=== PATIENT | female | born 1985 | race Caucasian/White ===

== ENCOUNTER 2017-07-12 07:31 | Emergency (ER) | payer SELFPAY ==
[2017-07-12 07:41] VITALS: BP 134/91
--- NOTE | 2017-07-12 08:26 | RAD ---
INDICATION: Right foot injury. TECHNIQUE: 3 views of the right foot were obtained. FINDINGS: There is soft tissue swelling present over the dorsal aspect of the foot. The bones are in normal alignment. No fracture is seen. Joint spaces appear maintained. IMPRESSION: SOFT TISSUE SWELLING, NO FRACTURE IS SEEN. IF THE PATIENT'S SYMPTOMS PERSIST RECOMMEND FOLLOW-UP IMAGING.
--- NOTE | 2017-07-12 11:22 | UC ---
Mara Dumas Gabriel, scribed for Beny Duarte MD on 07/12/17 at 0759 . Lower Extremity/Ankle HPI - HPI Summary HPI Summary: This patient is a 31 year old F presenting to [facility] s/p dropping a bin filled with wire on her foot at work this morning. The patient rates the pain 2/10 in severity. Pt is able to ambulate without a significant limp. - History of Current Complaint Chief Complaint: UCLowerExtremity Stated Complaint: FOOT INJURY Hx Obtained From: Patient Hx Last Menstrual Period: 06/28/17 Onset/Duration: Lasting Minutes, Still Present Severity Initially: Mild Severity Currently: Mild Pain Intensity: 3 Pain Scale Used: 0-10 Numeric Able to Bear Weight: Yes Related History: Occupational Injury - Allergies/Home Medications Allergies/Adverse Reactions: Allergies Allergy/AdvReac Type Severity Reaction Status Date / Time No Known Allergies Allergy Verified 07/12/17 07:41 Home Medications: Home Medications Etonogestrel [Nexplanon] 68 mg IMPLANT SEE INSTRUCTIONS 07/12/17 [History Confirmed 07/12/17] RiFAXimin* [Xifaxan*] 550 mg PO TID 07/12/17 [History Confirmed 07/12/17] PMH/Surg Hx/FS Hx/Imm Hx Other History Of: Negative For: Hepatitis B, Hepatitis C, Anticoagulant Therapy - Surgical History Surgical History: Yes Surgery Procedure, Year, and Place: , lap, t&a - Family History Known Family History: Negative: Respiratory Disease, Seizure Disorder - Social History Occupation: Employed Full-time Lives: With Family Alcohol Use: None Substance Use Type: None Smoking Status (MU): Never Smoked Tobacco Review of Systems Constitutional: Negative - fever Musculoskeletal: Other: - right foot pain All Other Systems Reviewed And Are Negative: Yes Physical Exam - Summary Physical Exam Summary: VITAL SIGNS: Reviewed. GENERAL: Patient is a well-developed and nourished male who is lying comfortable in the stretcher. Patient is not in any acute respiratory distress. HEAD AND FACE: Normocephalic EYES: PERRLA, EOMI x 2. EARS: Hearing grossly intact. MOUTH: Oropharynx within normal limits. NECK: Supple, trachea is midline, no adenopathy, no JVD, no carotid bruit. CHEST: Symmetric, no tenderness at palpation LUNGS: Clear to auscultation bilaterally. No wheezing or crackles. CVS: Regular rate and rhythm, S1 and S2 present, no murmurs or gallops appreciated. ABDOMEN: Soft, non-tender. Bowel sounds are normal. No abdominal abnormal pulsations. EXTREMITIES: Full ROM in all major joints, no edema, no cyanosis or clubbing. NEURO: Alert and oriented x 3. No acute neurological deficits. Speech is normal and follows commands. SKIN: Dry and warm, ecchymosis on the dorsal aspect of the right foot Triage Information Reviewed: Yes Vital Signs: Initial Vital Signs Temp 97.8 F 07/12/17 07:38 Pulse 93 07/12/17 07:38 Resp 18 07/12/17 07:38 BP 134/91 07/12/17 07:38 Pulse Ox 99 07/12/17 07:38 Vital Signs Reviewed: Yes Diagnostics - Radiology foot xray Radiology Interpretation Completed By: Radiologist - SOFT TISSUE SWELLING, NO FRACTURE IS SEEN. IF THE PATIENT'S SYMPTOMS PERSIST RECOMMEND FOLLOW-UP IMAGING. Dr. Duarte has reviewed this report. Lower Extremity Course/Dx - Course Course Of Treatment: Xray was negative for fracture. I discussed all the findings and test results with the patient. Patient was instructed to return to the urgent care or go to ER immediately if any of the symptoms return or worsens. Plan of care was discussed with the patient, and patient understands and agrees. All questions were answered to patient satisfaction. There were no further complaints or concerns. . The patient was found to have increased BP in UC. The patient will follow up with PCP for better control of BP. - Differential Dx/Diagnosis Provider Diagnoses: Foot contusion. Elevated blood pressure without a previous diagnoses of hypertension Discharge - Sign-Out/Discharge Documenting (check all that apply): Discharge/Admit/Transfer - Discharge Plan Condition: Stable Disposition: HOME Patient Education Materials: Contusion in Adults (ED) Referrals: [facility] REFERRAL [Outside] No Primary Care Phys,NOPCP [Primary Care Provider] - - Billing Disposition and Condition Condition: STABLE Disposition: HOME The documentation as recorded by the Mara pemberton Gabriel accurately reflects the service I personally performed and the decisions made by , Beny Duarte MD.
== END 2017-07-12 08:47 | disposition home or self-care (01) ==
LOC: UCEAST 07:31
DX: S90.31XA Contusion of right foot, initial encounter (principal); W20.8XXA Other cause of strike by thrown, projected or falling object, initial encounter; Y93.9 Activity, unspecified; Y92.89 Other specified places as the place of occurrence of the external cause; Y99.0 Civilian activity done for income or pay; R03.0 Elevated blood-pressure reading, without diagnosis of hypertension
CPT/HCPCS: 99202; G0463

== ENCOUNTER 2018-03-05 09:35 | Emergency (ER) | payer BC ==
[2018-03-05 12:17] VITALS: BP 124/78
[2018-03-05] MEDS ORDERED: Ibuprofen ADULT LIQ* 600 MG/30 ML UDC PO ONE (12:34)
--- NOTE | 2018-03-05 12:34 | UC ---
UC General HPI - HPI Summary HPI Summary: tripped and fell on her table injuring L ribs on . rolled over in bed 2 days ago and felt a pop and more pain in L ribs. + cough, worse at night. no sob or bloody sputum. denies any abdominal pain. - History of Current Complaint Chief Complaint: UCGeneralIllness Stated Complaint: LT SIDE RIB PAIN Time Seen by Provider: 03/05/18 12:11 Hx Obtained From: Patient Hx Last Menstrual Period: 02/28/18 Pain Intensity: 6 Aggravating: movement Associated Signs & Symptoms: Negative: Fever, Hematemesis, Hemoptysis, SOB, Wheezing - Allergy/Home Medications Allergies/Adverse Reactions: Allergies Allergy/AdvReac Type Severity Reaction Status Date / Time No Known Allergies Allergy Verified 03/05/18 12:07 PMH/Surg Hx/FS Hx/Imm Hx Previously Healthy: Yes Other History Of: Negative For: Hepatitis B, Hepatitis C, Anticoagulant Therapy - Surgical History Surgical History: Yes Surgery Procedure, Year, and Place: , lap, t&a - Family History Known Family History: Negative: Respiratory Disease, Seizure Disorder - Social History Alcohol Use: None Substance Use Type: None Smoking Status (MU): Never Smoked Tobacco Review of Systems All Other Systems Reviewed And Are Negative: Yes Constitutional: Positive: Negative Skin: Positive: Negative Eyes: Positive: Negative ENT: Positive: Negative Cardiovascular: Positive: Negative Gastrointestinal: Positive: Negative Genitourinary: Positive: Negative Motor: Positive: Negative Neurovascular: Positive: Negative Musculoskeletal: Positive: Negative Neurological: Positive: Negative Psychological: Positive: Negative Physical Exam Triage Information Reviewed: Yes Appearance: Well-Appearing Vital Signs: Initial Vital Signs Temp 98.1 F 03/05/18 12:09 Pulse 70 03/05/18 12:09 Resp 16 03/05/18 12:09 BP 124/78 03/05/18 12:09 Pulse Ox 100 03/05/18 12:09 Vital Signs Reviewed: Yes Eyes: Positive: Conjunctiva Clear ENT: Positive: Normal ENT inspection Neck: Positive: Supple, Nontender, No Lymphadenopathy Respiratory: Positive: Other: - purple bruising L lateral inferior rib area with tenderness. no subQ emphysema. no instability. Cardiovascular: Positive: RRR, No Murmur Abdomen Description: Positive: Nontender, No Organomegaly, Soft. Negative: CVA Tenderness (R), CVA Tenderness (L), Distended, Guarding Bowel Sounds: Positive: Present Musculoskeletal: Positive: ROM Intact Neurological: Positive: Alert Psychological: Positive: Age Appropriate Behavior Skin Exam: Normal Diagnostics - Radiology No standard instances Radiology Interpretation Completed By: Radiologist - CXR/RIBS=No radiographically apparent displaced rib fracture or pneumothorax. Course/Dx - Differential Dx - Multi-Symptom Differential Diagnoses: Other - RIB FX, PULMONARY CONTUSION, PTX - Diagnoses Provider Diagnosis: Chest wall contusion Discharge - Sign-Out/Discharge Documenting (check all that apply): Patient Departure All imaging exams completed and their final reports reviewed: Yes - Discharge Plan Condition: Stable Disposition: HOME Prescriptions: Naproxen [Naprosyn 500 mg tab] 500 mg PO BID 5 Days #10 tablet Patient Education Materials: Rib Contusion (ED) Referrals: HARVEY Nova [Medical Doctor] - If Needed Additional Instructions: STOP THE ASPIRIN - Billing Disposition and Condition Condition: STABLE Disposition: Home
== END 2018-03-05 13:23 | disposition home or self-care (01) ==
LOC: UCCORT 09:35
DX: S20.219A Contusion of unspecified front wall of thorax, initial encounter (principal); W01.190A Fall on same level from slipping, tripping and stumbling with subsequent striking against furniture, initial encounter; Y93.9 Activity, unspecified; Y92.9 Unspecified place or not applicable
CPT/HCPCS: 99212; A9270-GY; G0463

== ENCOUNTER 2018-05-17 15:18 | Emergency (ER) | payer BC ==
[2018-05-17 15:48] VITALS: BP 123/85
[2018-05-17] MEDS ORDERED: Ibuprofen TAB* 600 MG PO ONE (15:56)
--- NOTE | 2018-05-17 15:58 | UC ---
Hand/Wrist HPI - HPI Summary HPI Summary: Right hand injury this morning when pt dropped a cinder block on it. - History Of Current Complaint Stated Complaint: RT HAND INJURY Time Seen by Provider: 05/17/18 15:45 Hx Obtained From: Patient Hx Last Menstrual Period: 05/01/18 ?: No Onset/Duration: Sudden Onset, Lasting Hours Severity Initially: Moderate Severity Currently: Moderate Pain Intensity: 4 Character Of Pain: Dull, Aching Aggravating Factor(s): Movement Alleviating Factor(s): Nothing Associated Signs And Symptoms: Positive: Swelling, Bruising, Weakness - Allergies/Home Medications Allergies/Adverse Reactions: Allergies Allergy/AdvReac Type Severity Reaction Status Date / Time No Known Allergies Allergy Verified 05/17/18 15:49 Home Medications: Home Medications NK [No Home Medications Reported] 05/17/18 [History Confirmed 05/17/18] PMH/Surg Hx/FS Hx/Imm Hx Previously Healthy: Yes Other History Of: Negative For: Hepatitis B, Hepatitis C, Anticoagulant Therapy - Surgical History Surgical History: Yes Surgery Procedure, Year, and Place: , exploratory lap, t&a. kidney stone removed - Family History Known Family History: Positive: Diabetes Negative: Respiratory Disease, Seizure Disorder - Social History Alcohol Use: None Substance Use Type: None Smoking Status (MU): Never Smoked Tobacco Review of Systems All Other Systems Reviewed And Are Negative: Yes Constitutional: Positive: Negative Skin: Positive: Bruising Eyes: Positive: Negative ENT: Positive: Negative Respiratory: Positive: Negative Cardiovascular: Positive: Negative Gastrointestinal: Positive: Negative Genitourinary: Positive: Negative Motor: Positive: Negative Neurovascular: Positive: Negative Musculoskeletal: Positive: Arthralgia, Decreased ROM, Edema, Myalgia Neurological: Positive: Negative Psychological: Positive: Negative Is Patient Immunocompromised?: No Physical Exam Triage Information Reviewed: Yes Appearance: Well-Appearing, Well-Nourished, Pain Distress Vital Signs: Initial Vital Signs Temp 97.8 F 05/17/18 15:44 Pulse 84 05/17/18 15:44 Resp 17 05/17/18 15:44 BP 123/85 05/17/18 15:44 Pulse Ox 100 05/17/18 15:44 Vital Signs Reviewed: Yes Eye Exam: Normal ENT Exam: Normal Dental Exam: Normal Neck exam: Normal Respiratory Exam: Normal Respiratory: Positive: Chest non-tender, Lungs clear, Normal breath sounds Cardiovascular Exam: Normal Cardiovascular: Positive: RRR, No Murmur, Pulses Normal Abdominal Exam: Normal Bowel Sounds: Positive: Present Musculoskeletal: Positive: Strength Limited @ - due to pain, ROM Limited @ - due to swelling of the fingers, wrist unaffected, Edema @ - in metatarsal region and fingers Neurological Exam: Normal Psychological Exam: Normal Skin: Positive: Other - bruising of the 2dn and third finger Hand/Wrist Course/Dx - Course Course Of Treatment: hx obtained, exam performed ,meds reviewed, xray obtained and is negative, ibuprofen given. splint applied for work - Differential Dx/Diagnosis Differential Diagnosis/HQI/PQRI: Contusion, Dislocation, Fracture Provider Diagnosis: Contusion of hand, right Discharge - Sign-Out/Discharge Documenting (check all that apply): Patient Departure All imaging exams completed and their final reports reviewed: Yes - Discharge Plan Condition: Stable Disposition: HOME Patient Education Materials: Contusion in Adults (ED) Referrals: Mariela Paige [Primary Care Provider] - Additional Instructions: 1. use the splint as needed. 2. Ice today then warm water soaks for the next few days. work through ther Range of motion to help with removing the swelling - Billing Disposition and Condition Condition: STABLE Disposition: Home
== END 2018-05-17 16:29 | disposition home or self-care (01) ==
LOC: UCCORT 15:18
DX: S60.221A Contusion of right hand, initial encounter (principal); W20.8XXA Other cause of strike by thrown, projected or falling object, initial encounter; Y92.9 Unspecified place or not applicable
CPT/HCPCS: 99213; A9270-GY; G0463

== ENCOUNTER 2019-04-23 13:31 | Emergency (ER) | payer BC, OTHER ==
--- OUTSIDE RECORDS SUMMARY | 2019-04-23 13:38 | XMS REPORT | Continuity of Care Document ---
:1985 External Reference #:[id number] Author Name NICK Colindres Address [address] [place] [address] Care Team Providers Name Role Phone Elyse Zamora M.D. 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 Onset: 02/12/2019 Headache Elyse Zamora M.D. Onset: 02/13/2019 Irritable bowel syndrome with diarrhea Elyse Zamora M.D. Onset: 02/13/2019 Social History Type Date Description Comments Sex Unknown Tobacco Use Start: Unknown Nonsmoker Smoking Status Reviewed: 03/12/19 Nonsmoker ETOH Use Denies alcohol use Tobacco Use Start: Unknown Patient has never smoked Allergies, Adverse Reactions, Alerts Description No Known Drug Allergies Medications Active Medications SIG Qnty Indications Ordering Provider Date Miralax 17 grams every 24units Jeanne 04/03/2019 3350NF Packet day with large NICK Hand glass water Desloratadine take 1 tablet 30tabs H69.93 Gonzalez Stone, 03/12/2019 5mg Tablets by mouth every M.D. day for 2 weeks Viibryd 1 tab by mouth 30tabs F33.9 Elyse Zamora, 02/13/2019 10mg Tablets every day M.D. History Medications Hyoscyamine Sulfate place 1 tablet 100tabs K58.0 Elyse Zamora, 02/13/2019 - under tongue as M.D. 04/03/2019 0.125mg Tablets needed up to 4 Dispers times per day Viibryd Continue 1 tablet 30tabs F33.9 Gonzalez Stone, 12/31/2018 - 20mg Tablets daily M.D. 02/13/2019 Xanax Take 1 - 2 60tabs F33.9 Elyse Zamora, 12/31/2018 - 0.25mg Tablets tablets at M.D. 03/12/2019 bedtime Immunizations CPT Code Status Date Vaccine Lot # [id number] Given 02/13/2019 Influenza Vac, Quadrivalent, Slit Virus, Im [id number] Vital Signs Date Vital Result Comment 04/03/2019 3:08pm BP Systolic 118 mmHg BP Diastolic 68 mmHg Heart Rate 72 /min Body Temperature 97.7 F Respiratory Rate 16 /min Weight 157.00 lb 03/12/2019 3:02pm BP Systolic 100 mmHg BP Diastolic 60 mmHg Heart Rate 68 /min Body Temperature 98.9 F Respiratory Rate 16 /min Height 60 inches 5'0" Weight 159.00 lb BMI (Body Mass Index) 31.0 kg/m2 Results Test Acquired Date Facility Test Result H/L Range Note Ua - Micro ([facility]) 02/13/2019 [facility] medicine Appearance clear (607)- - Color yellow Glucose, Urine (Fma/CMC/CTX) neg Bilirubin neg Ketones neg SP Grav 1.020 Blood neg PH 7.5 Protein neg Urobil 1.0 Nitrite neg Leukocytes (Fma/CMC/Centrex) trace Hyaline - /Lpf Granular - /Lpf WBC (Fma,Centrex) 3-6 RBC 1-3 Mucus (Fma/CBC/Centrex) - /Lpf Epith mod /Lpf Bacteria 1+ /Hpf Amorphous (Fma/CMC/Centrex) trace /Lpf Crystals, Fluid (Fma/CMC/CTX) - Z#Comments - Ua - Micro ([facility]) 12/31/2018 [facility] medicine Appearance cloudy (607)- - Color orange Glucose, Urine (Fma/CMC/CTX) 100mg High not dm providere Bilirubin icto neg Ketones trace SP Grav >=1.030 Blood small PH 5.5 Protein trace Ssa 1+ Urobil 2.0 Nitrite negative Leukocytes (Fma/CMC/Centrex) negative Hyaline - /Lpf Granular - /Lpf WBC (Fma,Centrex) 0-2 RBC 5-10 Mucus (Fma/CBC/Centrex) - /Lpf Epith rare /Lpf Bacteria rare /Hpf Amorphous (Fma/CMC/Centrex) - /Lpf Crystals, Fluid (Fma/CMC/CTX) - Z#Comments - Laboratory test 12/31/2018 [facility] Hemoglobin A1c 4.7 % 4.1-5.7 finding (607)- - ([facility]) Comprehensive 12/31/2018 [facility] Bianca([facility]) Sodium 140 mEq/L 134-149 Metabolic Prof Potassium 3.6 mEq/L 3.6-5.5 Chloride 109 mEq/L 94-112 Carbon Dioxide 24 mEq/L 21-32 Glucose 99 mg/dL 70-105 BUN 12 mg/dL 6-26 Creatinine 0.7 mg/dL 0.6-1.4 BUN/Creat Ratio 17.1 CALC 8.0-36.0 Calcium 9.1 mg/dL 8.6-10.2 Total Protein 7.3 g/dL 6.4-8.3 Albumin 4.7 g/dL 3.8-5.5 Globulin 2.6 g/dL 2.0-4.8 A/G Ratio 1.8 CALC 0.6-2.3 Alk. Phosphatase 64 U/L 30-110 Alt (SGPT) 17 U/L 7-35 Ast (Sgot) 21 U/L 5-34 Total Bilirubin 0.6 mg/dL 0.2-1.3 GFR Non- >60 ml/min/1.73m^ >=60 GFR >60 ml/min/1.73m^ >=60 CBC Electronic a 12/31/2018 Ulisses Valenzuela([facility]) WBC 5.8 x10^3/UL 4.0- 10.0 RBC 4.86 x10^6/UL 3.93-6.00 HGB 14.2 g/dL 12.0-17.0 HCT 42 % 35-50 MCV 86.4 fL 80.0-95.0 MCH 29.2 pg 25.6-32.2 MCHC 33.8 g/dL 32.2-36.0 RDW-CV 12.2 % 11.6-14.4 PLT 244 x10^3/UL 163-400 MPV 10.0 fL 9.4-12.4 Rafal# 3.38 x10^3/UL 1.56-6.13 Lymph# 1.64 x10^3/UL 1.18-3.74 Dewitt# 0.54 x10^3/UL 0.24-0.82 Eos # 0.2 x10^3/UL 0.0-0.5 Baso # 0.03 x10^3/UL 0.01-0.08 Rafal% 58.4 % 34.0-70.0 Lymph % 28.3 % 20.0-52.0 Dewitt% 9.3 % 5.0-12.0 Eos% 3.3 % 0.7-7.0 Baso% 0.5 % 0.1-1.2 Urine Culture And Sensitivities 12/31/2018 [facility] [place] SEE RESULT BELOW 1 1 SEE RESULT BELOW Name: LINDA DOMINGUEZ : [address]: MARGO Salgado Acct: [id number] Unit: [id number] AGE: 33 Location: [facility] Re12/31/18 SEX: F Status: REG REF SPEC: [id number] WAYNE: 12/31/18-[address]: MARGO Salgado REQ: [id number] RECD: 01/01/19 STATUS:COMP _ SOURCE: URINE SPDESC: ORDERED: Urine Culture COMMENTS: [id number] 1 dumont urine transport tube Urine Source: Random Procedure Result Reported Site Urine Culture Final 01/03/19- 0909 ML No growth of clinically significant organisms * ML - Main Lab . END OF REPORT DEPARTMENT OF PATHOLOGY, [address] [place] [address] Magno Tse M.D. Director [facility] # [id number] Procedures Description No Information Available Medical Devices Description No Information Available Encounters Type Date Location Provider Dx Diagnosis Office Visit 03/12/2019 [facility] Office Marlin Longoria, H69.93 Unspecified 3:00p MARGO Eustachian tube disorder, bilateral Office Visit 02/13/2019 [facility] Office Elyse Zamora, F33.9 Major depressive 8:40a M.D. disorder, recurrent, unspecified R81 Glycosuria K58.0 Irritable bowel syndrome with diarrhea R06.83 Snoring R51 Headache Z23 Encounter for immunization Office Visit 12/31/2018 4:30p [facility] Office Marlin Singh J06.9 Acute upper MARGO Longoria respiratory infection, unspecified N39.0 Urinary tract infection, site not specified F33.9 Major depressive disorder, recurrent, unspecified M54.5 Low back pain Office Visit 12/06/2018 2:45[facility] Office Jeanne Hand, [employer] R51 Headache L29.8 Other pruritus E66.3 Overweight Z00.00 Encntr for general adult medical exam w/o abnormal findings Assessments Date Code Description Provider 04/03/2019 K58.0 Irritable bowel syndrome with diarrhea Jeanne Peace, [facility] 04/03/2019 N80.9 Endometriosis, unspecified Jeannejaneen Hand, [facility] 04/03/2019 E66.3 Overweight Jeannejaneen Hand, [facility] 04/03/2019 K64.9 Unspecified hemorrhoids Jeanne Hand, [facility] 03/12/2019 H69.93 Unspecified Eustachian tube disorder, MARGO Lux bilateral 02/13/2019 F33.9 Major depressive disorder, recurrent, Elyse Zamora M.D. unspecified 02/13/2019 R81 Glycosuria Elyse Zamora M.D. 02/13/2019 K58.0 Irritable bowel syndrome with diarrhea Elyse Zamora M.D. 02/13/2019 R06.83 Snoring Elyse Zamora M.D. 02/13/2019 R51 Headache Elyse Zamora M.D. 02/13/2019 Z23 Encounter for immunization Elyse Zamora M.D. 12/31/2018 J06.9 Acute upper respiratory infection, MARGO Lux unspecified 12/31/2018 N39.0 Urinary tract infection, site not specified MARGO Lux 12/31/2018 F33.9 Major depressive disorder, recurrent, MARGO Lux unspecified 12/31/2018 M54.5 Low back pain MARGO Lux 12/06/2018 R51 Headache Jeanne Peace, [facility] 12/06/2018 L29.8 Other pruritus Jeanne Hand, [facility] 12/06/2018 E66.3 Overweight Jeanne Hand, [facility] 12/06/2018 Z00.00 Encounter for general adult medical NICK Colindres examination without abnormal findings Plan of Treatment Future Appointment(s):04/16/2019 9:20 am - Elyse Zamora M.D. at [facility]04/03/2019 - NICK ColindresK58.0 Irritable bowel syndrome with ftaugzxlT92.9 Endometriosis, dpcuffrxngkD68.3 ZtfzyiewcgC80.9 Unspecified hemorrhoidsComments:we will arrange referral to Dr Sawyer Medication: Miralax 3350 NF - 17 grams every day with large glass water Functional Status Description No Information Available Mental Status Description No Information Available Referrals Refer to Reason for Referral Status Appt Date [facility] [place] ind;snoring jw [facility] [place] [address] [place] [address] [phone]
--- OUTSIDE RECORDS SUMMARY | 2019-04-23 13:38 | XMS REPORT | Continuity of Care Document ---
:1985 External Reference #:[id number] Author Name Elyse Zamora M.D. Address [address] [place] [address] Care Team Providers Name Role Phone Elyse Zamora M.D. - Family Medicine Care Team Information Shipping And Receiving Material Handler [phone] Problems Active Problems Provider Date Recurrent major [...] Medications SIG Qnty Indications Ordering Provider Date Dicyclomine HCL take one capsule 30caps K58.0 Elyse Zamora M.D. 2019 10mg by mouth every Capsules day as needed Anusol-HC 1 unit per 12units K64.9 Elyse Zamora M.D. 04/16/2019 25mg rectum every Suppository evening x 3 days then as needed Miralax 17 grams every 24units Jeanne Hand, 04/03/2019 3350NF Packet day with large RECYCLE WORKER glass water Viibryd 1 tab by mouth 30tabs F33.9 Elyse Zamora M.D. 02/13/2019 10mg Tablets every day History Medications Desloratadine take 1 tablet by 30tabs H69.93 Gonzalez Trinidad 03/12/2019 - 5mg mouth every day Felipe Stone 04/16/2019 Tablets for [address] 1 tablet 100tabs K58.0 Elyse Zamora, 02/13/2019 - under tongue as M.DAlma 04/03/2019 0.125mg Tablets needed up to 4 Dispers times per day Viibryd Continue 1 30tabs F33.9 Gonzalez HallAlma 12/31/2018 - 20mg Tablets tablet daily Felipe Stone 02/13/2019 Xanax Take 1 - 2 60tabs F33.9 Elyse Zamora, 12/31/2018 - 0.25mg Tablets tablets at M.D. 03/12/2019 bedtime Immunizations CPT Code Status Date Vaccine Lot # [id number] Given 02/13/2019 Influenza Vac, Quadrivalent, Slit Virus, Im [id number] Vital Signs Date Vital Result Comment 04/16/2019 9:00am BP Systolic 110 mmHg BP Diastolic 72 mmHg Heart Rate 80 /min Body Temperature 97.3 F Height 60 inches 5'0" Weight 156.00 lb BMI (Body Mass Index) 30.5 kg/m2 04/03/2019 3:08pm BP Systolic 118 mmHg BP Diastolic 68 mmHg Heart Rate 72 /min Body Temperature 97.7 F Respiratory Rate 16 /min Weight 157.00 lb Results Test Acquired Date Facility Test Result H/L Range Note Ua - Micro (a) 02/13/2019 [facility] Appearance clear (607)- - Color yellow [...] (Fma/CMC/CTX) - Z#Comments - Ua - Micro (a) 12/31/2018 [facility] Appearance cloudy (607)- - Color orange [...] (Fma/CMC/CTX) - Z#Comments - Laboratory test 12/31/2018 [facility] Hemoglobin A1c 4.7 % 4.1-5.7 finding (607)- - (Fma) Comprehensive 12/31/2018 [facility](a) Sodium 140 mEq/L 134-149 Metabolic Prof Potassium [...] >=60 GFR >60 ml/min/1.73m^ >=60 CBC Electronic Fma 12/31/2018 [facility](a) WBC 5.8 x10^3/UL 4.0- 10.0 RBC 4.86 x10^6/UL 3.93-6.00 HGB 14.2 g/dL 12.0-17.0 HCT 42 % 35-50 MCV 86.4 fL 80.0-95.0 MCH 29.2 pg 25.6-32.2 MCHC 33.8 g/dL 32.2-36.0 RDW-CV 12.2 % 11.6-14.4 PLT 244 x10^3/UL 163-400 MPV 10.0 fL 9.4-12.4 Rafal# 3.38 x10^3/UL 1.56-6.13 Lymph# 1.64 x10^3/UL 1.18-3.74 [place]# 0.54 x10^3/UL 0.24-0.82 Eos # 0.2 x10^3/UL 0.0-0.5 Baso # 0.03 x10^3/UL 0.01-0.08 Rafal% 58.4 % 34.0-70.0 Lymph % 28.3 % 20.0-52.0 [place]% 9.3 % 5.0-12.0 Eos% 3.3 % 0.7-7.0 Baso% 0.5 % 0.1-1.2 Urine Culture And Sensitivities 12/31/2018 [facility] [place] SEE RESULT BELOW 1 1 SEE RESULT BELOW Name: LINDA DOMINGUEZ : [address]: MARGO Salgado Acct: [id number] Unit: [id number] AGE: 33 Location: [facility] Re12/31/18 SEX: F Status: REG REF SPEC: [id number] WAYNE: 12/31/18-[address]: MARGO Salgado REQ: [id number] RECD: 01/01/19 STATUS:COMP _ [facility]rine [facility] COMMENTS: [id number] 1 dumont urine transport tube Urine Source: Random Procedure Result Reported Site Urine Culture Final 01/03/19- 0909 ML No growth of clinically significant organisms * ML - Main Lab . END OF REPORT DEPARTMENT OF PATHOLOGY, [address] [place] [address] Magno Tse M.D. Director [facility] # [id number] Procedures Description No Information Available Medical Devices Description No Information Available Encounters Type Date Location Provider Dx Diagnosis Office Visit 04/03/2019 [facility] Office Jeanne Hand, K58.0 Irritable bowel 3:15p RECYCLE WORKER syndrome with diarrhea N80.9 Endometriosis, unspecified E66.3 Overweight K64.9 Unspecified hemorrhoids Office Visit 03/12/2019 3:00p [facility] Office Marlin Singh H69.93 Unspecified MARGO Longoria Eustachian tube disorder, bilateral Office Visit 02/13/2019 8:40a [facility] Elyse Zamora, F33.9 Major depressive M.DAlma disorder, recurrent, unspecified R81 Glycosuria K58.0 Irritable bowel syndrome with diarrhea R06.83 Snoring R51 Headache Z23 Encounter for immunization Office Visit 12/31/2018 4:30p [facility] Marlin Singh J06.9 Acute upper MARGO Longoria respiratory infection, unspecified N39.0 Urinary tract infection, site not specified F33.9 Major depressive disorder, recurrent, unspecified M54.5 Low back pain Office Visit 12/06/2018 2:45p [facility] Jeannejarred Hand, RECYCLE WORKER R51 Headache L29.8 Other pruritus E66.3 Overweight Z00.00 Encntr for general adult medical exam w/o abnormal findings Assessments Date Code Description Provider 04/16/2019 K58.0 Irritable bowel syndrome with diarrhea Elyse Zamora M.D. 04/16/2019 F33.9 Major depressive disorder, recurrent, Elyse Zamora M.D. unspecified 04/16/2019 K64.9 Unspecified hemorrhoids Elyse Zamora M.D. 04/16/2019 N80.9 Endometriosis, unspecified Elyse Zamora M.D. 04/03/2019 K58.0 Irritable bowel syndrome with diarrhea Jeanne Hand, [facility] 04/03/2019 N80.9 Endometriosis, unspecified Jeanne Peace, [facility] 04/03/2019 E66.3 Overweight Jeanne Hand, [facility] 04/03/2019 K64.9 Unspecified hemorrhoids Jeannejaneen Hand, [facility] 03/12/2019 H69.93 Unspecified Eustachian tube disorder, MARGO [...] pain MARGO Lux 12/06/2018 R51 Headache Jeanne Hand, [facility] 12/06/2018 L29.8 Other pruritus Jeannejaneen Hand, [facility] 12/06/2018 E66.3 Overweight Jeanne Alejandrebhart, [facility] 12/06/2018 Z00.00 Encounter for general adult medical Jeanne Hand [facility] examination without abnormal findings Plan of Treatment 04/16/2019 - Elyse Zamora M.D.K58.0 Irritable bowel syndrome with diarrheaNew Medication:Dicyclomine HCL 10 mg - take one capsule by mouth every day as neededComments:trial FODMAP diet ; refer GI possible bacterial overgrowth, had neg colonoscopy in past per patient try dicyclomine call if not improved or worsen consipation, Reviewed adverse side effects of medication. Advised to call the office if experiencing symptoms. Patient verbalized understanding.Follow up:kpzbupjwO15.9 Major depressive disorder, recurrent, unspecifiedComments:stable on regimen call if symptoms ehidagN75.9 Unspecified hemorrhoidsNew Medication:Anusol-HC 25 mg - 1 unit per rectum every evening x 3 days then as neededComments:stool softeners, increase fiber and water; sitz baths, hemorrhoidal cream for discomfort ; discussed if worsening bleeding or pain to call the office refer surgery for eval, trial qbwosqdedfpH88.9 Endometriosis, unspecifiedComments:refer ENGINEER BOOSTER AND EXHAUSTER for evaluationAllComments: Medication Management Patient Understands medications she's taking? Yes No Are there Barriers to Adherence? Yes No Has the patient been asked about herbal supplements and therapies, and OTC meds? Yes No Functional Status Description No Information Available Mental Status Description No Information Available Referrals Refer to Reason for Referral Status Appt Date Caprice Bello MD Hemorrhoids jw Created 04/19/2019 [address], [place] [address] [phone] [facility] sleep study ind;snoring jw [facility] [address] [place] [address] [phone]
--- OUTSIDE RECORDS SUMMARY | 2019-04-23 13:38 | XMS REPORT | Continuity of Care Document ---
:1985 External Reference #:[id number] Author Name Caprice Bello MD (transmitted by agent of provider Moise Van) Address [address] [place] [address] Care Team Providers Name Role Phone Elyse Zamora MD - Family Care Team Information Sales Executive [phone] Medicine Problems Description No Information Available Social History Type Date Description Comments Sex Unknown ETOH Use Denies alcohol use Tobacco Use Start: Unknown Patient has never smoked Smoking Status Reviewed: 04/19/19 Patient has never smoked Exercise Type/Frequency Exercises sporadically Allergies, Adverse Reactions, Alerts Description No Known Drug Allergies Medications Active Medications SIG Qnty Indications Ordering Date Provider Anusol-HC Apply to the 30gm K64.4 Caprice Bello MD 04/19/2019 2.5% affected area up to Cream 2 times daily for up to 7 days Anusol-HC once a day x 10 days 24units Caprice Bello MD 04/16/2019 25mg Suppository Dicyclomine HCL Unknown 10mg Capsules Viibryd 1 by mouth every day Unknown 10mg Tablets Miralax take 1 packet daily Unknown 3350NF as needed for Packet constipation Immunizations Description No Information Available Vital Signs Date Vital Result Comment 04/19/2019 10:07am Height 60 inches 5'0" Weight 155.00 lb Heart Rate 68 /min BP Systolic Sitting 118 mmHg BP Diastolic Sitting 70 mmHg Respiratory Rate 16 /min Body Temperature 98.3 F BMI (Body Mass Index) 30.3 kg/m2 Results Description No Information Available Procedures Description No Information Available Medical Devices Description No Information Available Encounters Description No Information Available Assessments Date Code Description Provider 04/19/2019 K64.4 Residual hemorrhoidal skin tags Caprice Bello MD Plan of Treatment Future Appointment(s):05/27/2019 1:00 pm - Caprice Bello MD at [facility]04/23/2019 1:00 pm - NICK Fitzgerald-Patie at [facility]05/22/2019 10:00 am - Flores Gonzalez MD at [facility]04/19/2019 - Caprice Bello MDK64.4 Residual hemorrhoidal skin tagsNew Medication:Anusol-HC 2.5 % - Apply to the affected area up to 2 times daily for up to 7 daysFollow up:1 monthInstructions:Use Prep H cream as needed. May use steroid cream as needed but stop using after 7 continuous days. May also try steroid suppository for symptoms. Sitz baths (sit in tub of warm water for about 15 min)2-3 times a day. Try to increase fiber in your diet. Continue using Metamucil. Try barrier caream (with zinc oxide) on the area to protect the skin. Functional Status Description No Information Available Mental Status Description No Information Available Referrals Description No Information Available
[2019-04-23 13:49] VITALS: BP 130/76
--- NOTE | 2019-04-23 13:52 | UC ---
FLU HPI - HPI Summary HPI Summary: 33-year-old female whose had flulike symptoms for approximately 2 or 3 days. - History of Current Complaint Chief Complaint: UCRespiratory Stated Complaint: ST/HERNANDEZ/CHILLS Time Seen by Provider: 04/23/19 13:48 Hx Obtained From: Patient Hx Last Menstrual Period: 04/11/19 ?: No Onset/Duration: Gradual Onset Severity Currently: Mild Severity Initially: Mild Pain Intensity: 6 Associated Signs & Symptoms: Positive: Fever, Myalgia, Sore Throat, Nasal Congestion, Headache Related Hx: Possible Flu/Infectious Exposure - Allergy/Home Medications Allergies/Adverse Reactions: Allergies Allergy/AdvReac Type Severity Reaction Status Date / Time No Known Allergies Allergy Verified 04/23/19 13:50 Home Medications: Home Medications Albuterol HFA INHALER* [Ventolin HFA Inhaler*] 2 puff INH Q6H PRN 04/23/19 [ History Confirmed 04/23/19] Antidepressant 10 mg PO DAILY 04/23/19 [History Confirmed 04/23/19] Liquid Cough And Cold 1 dose PO Q4H PRN 04/23/19 [History Confirmed 04/23/19] guaiFENesin [Mucinex] 1,200 mg PO ONCE PRN 04/23/19 [History Confirmed 04/23/19] PMH/Surg Hx/FS Hx/Imm Hx Previously Healthy: Yes Other History Of: Negative For: Hepatitis B, Hepatitis C, Anticoagulant Therapy - Surgical History Surgical History: Yes Surgery Procedure, Year, and Place: , exploratory lap, t&a. kidney stone removed x 3 procedures: mesh placed; stone removed, mesh removed - last procedure 04/2018 - Family History Known Family History: Positive: Diabetes Negative: Respiratory Disease, Seizure Disorder - Social History Occupation: Employed Full-time Lives: With Family Alcohol Use: None Substance Use Type: None Smoking Status (MU): Never Smoked Tobacco Review of Systems All Other Systems Reviewed And Are Negative: Yes Constitutional: Positive: Fever, Chills ENT: Positive: Sore Throat, Nasal Discharge Respiratory: Positive: Cough - Dry nonproductive cough. Musculoskeletal: Positive: Myalgia Neurological/Mental Status: Positive: Headache Physical Exam Triage Information Reviewed: Yes Appearance: Well-Appearing, No Pain Distress, Well-Nourished Vital Signs: Initial Vital Signs Temp 99.5 F 04/23/19 13:45 Pulse 95 04/23/19 13:45 Resp 16 04/23/19 13:45 BP 130/76 04/23/19 13:45 Pulse Ox 100 04/23/19 13:45 Vital Signs Reviewed: Yes Eyes: Positive: Conjunctiva Clear ENT: Positive: Pharynx normal, TMs normal, Uvula midline Neck: Positive: Supple, Nontender, No Lymphadenopathy Respiratory: Positive: Lungs clear, Normal breath sounds, No respiratory distress, No accessory muscle use Cardiovascular: Positive: RRR, No Murmur, Pulses Normal, Brisk Capillary Refill Musculoskeletal Exam: Normal Neurological Exam: Normal Psychological Exam: Normal Skin Exam: Normal Flu Course/Dx - Course Course Of Treatment: Rapid flu test: Negative Rapid strep test: Negative Patient is comfortable here. 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 - Differential Dx/Diagnosis Provider Diagnosis: Flu-like symptoms Discharge ED - Sign-Out/Discharge Documenting (check all that apply): Patient Departure All imaging exams completed and their final reports reviewed: No Studies - Discharge Plan Condition: Good Disposition: HOME Patient Education Materials: Pharyngitis (ED) Forms: *Work Release Referrals: Elyse Zamora MD [Primary Care Provider] - Additional Instructions: Increase fluids, rest, follow-up with your primary care provider if no improvement in 3 or 4 days. - Billing Disposition and Condition Condition: GOOD Disposition: Home
[2019-04-23 14:12] LABS: Influenza A Molecular Negative (Negative); Influenza B Molecular Negative (Negative)
== END 2019-04-23 14:23 | disposition home or self-care (01) ==
LOC: UCCORT 13:31
DX: J02.9 Acute pharyngitis, unspecified (principal); R05 Cough; R09.89 Other specified symptoms and signs involving the circulatory and respiratory systems; M79.10 Myalgia, unspecified site; R51 Headache
CPT/HCPCS: 87651; 99211; G0463

== ENCOUNTER 2019-06-02 08:30 | Emergency (ER) | payer BC, OTHER ==
--- OUTSIDE RECORDS SUMMARY | 2019-06-02 08:37 | XMS REPORT | Continuity of Care Document ---
:1985 External Reference #:[id number] Demographics Address [address] [place] [address] Home Phone [phone] Mobile Phone [phone] Email Address Preferred Language en Marital Status Not or Mu-Ism Affiliation Unknown Race White Ethnic Group Not or Author Name Rachael Truong, MOLD OPERATOR-Cde (transmitted by agent of provider May) Address [address] , [place] [address] Care Team Providers Name Role Phone Elyse Zamora MD - Family Care Team Information Pulpwood Buyer [phone] Medicine Problems Description No Information Available Social History Type Date Description Comments Sex Unknown ETOH Use Denies alcohol use Tobacco Use Start: Unknown Patient has never smoked Recreational Drug Use Denies Drug Use Smoking Status Reviewed: 05/14/19 Patient has never smoked Exercise Type/Frequency Exercises sporadically Allergies, Adverse Reactions, Alerts Description No Known Drug Allergies Medications Active Medications SIG Qnty Indications Ordering Date Provider Nuvaring insert vaginally x 3 3units N92.0 Rachael Truong, 05/14/2019 week every month MOLD OPERATOR-Cde 0.12-0.015mg/24HR Ring Anusol-HC Apply to the 30gm K64.4 Caprice Bello MD 04/19/2019 2.5% affected area up to Cream 2 times daily for up to 7 days Dicyclomine HCL Unknown 10mg Capsules Viibryd 1 by mouth every day Unknown 10mg Tablets Miralax take 1 packet daily Unknown 3350NF as needed for Packet constipation History Medications Anusol-HC once a day x 10 24units Caprice Bello MD 04/16/2019 - 25mg Suppository days 05/13/2019 Immunizations Description No Information Available Vital Signs Date Vital Result Comment 05/14/2019 4:10pm Height 60 inches 5'0" Weight 154.00 lb Heart Rate 65 /min BP Systolic 111 mmHg BP Diastolic 76 mmHg Body Temperature 97.7 F O2 % BldC Oximetry 100 % BMI (Body Mass Index) 30.1 kg/m2 05/02/2019 12:50pm Height 60 inches 5'0" Weight 154.00 lb Heart Rate 78 /min BP Systolic 117 mmHg BP Diastolic 84 mmHg O2 % BldC Oximetry 98 % BMI (Body Mass Index) 30.1 kg/m2 Last Menstrual Period [id number] Results Test Acquired Date Facility Test Result H/L Range Note CBC Auto 05/03/2019 [facility] White Blood 6.0 10^3/uL Normal 3.5-10.[address] [place] [address] [phone] Red Blood Count 4.41 10^6/uL Normal 3.70-4.87 Hemoglobin 13.0 g/dL Normal 12.0-16.0 Hematocrit 39 % Normal 35-47 Mean Corpuscular Volume 87 fL Normal 80-97 Mean Corpuscular Hemoglobin 30 pg Normal 27-31 Mean Corpuscular HGB Conc 34 g/dL Normal 31-36 Red Cell Distribution Width 13 % Normal 10-15 Platelet Count 258 10^3/uL Normal 150-450 Mean Platelet Volume 8.0 fL Normal 7.4-10.4 Abs Neutrophils 4.0 10^3/uL Normal 1.5-7.7 Abs Lymphocytes 1.5 10^3/uL Normal 1.0-4.8 Abs Monocytes 0.4 10^3/uL Normal 0-0.8 Abs Eosinophils 0.1 10^3/uL Normal 0-0.6 Abs Basophils 0.0 10^3/uL Normal 0-0.2 Abs Nucleated RBC 0.0 10^3/uL Granulocyte % 65.9 % Lymphocyte % 25.2 % Monocyte % 6.7 % Eosinophil % 1.5 % Basophil % 0.7 % Nucleated Red Blood Cells % 0.1 Laboratory test 05/03/2019 [facility] Ferritin 70.9 ng/mL Normal 11-[address] [place] [address] [phone] TSH (Thyroid Stim Horm) 1.05 mcIU/mL Normal 0.34-5.60 Vitamin B12 481 pg/mL Normal 180-914 1 Laboratory test 05/02/2019 [facility] Gardnerella/Yeast: SEE RESULT [address] [place] [address] [phone] 1 Normal Range 180 to 914 Indeterminate Range 145 to 180 Deficient Range <145 2 SEE RESULT BELOW Name: LINDA DOMINGUEZ Teo : [address]: Rachael Truong NP [facility] [employer] [facility] [employer] Acct: [id number] Unit: [id number] AGE: 33 Location: [facility] Re05/02/19 SEX: F Status: REG REF SPEC: [id number] WAYNE: 05/02/19-[address]: Rachael LAMAR REQ: [id number] RECD: 05/02/19 STATUS: COMP _ SOURCE: VAGINAL SPDESC: ORDERED: Nikunj,Yeast DNA, Trich DNA COMMENTS: [id number] Would you like to order Trichomonas Vaginalis testing? Yes Procedure Result Reported Site Gardnerella/Yeast: Vaginal DNA Final 05/03/19- 1036 ML Organism 1 Negative Gardnerella Organism 2 Negative Huong The presence of G. vaginalis, although suggestive, is not diagnostic for bacterial vaginosis. Results should be interpreted in conjuction with other clinical and laboratory data available. Women with vaginal discharge should be evaluated for risk factors of cervicitis and pelvic inflammatory disease, toxic shock syndrome (S.aureus), and if present, evaluated for organisms not included in this assay such as N. gonorrhoeae, C. trachomatis, Mobiluncus, Mycoplasma and/or Prevotella. Mixed infections may occur. The performance of this test on patient specimens collected during or immediately after antimicrobial therapy is unknown. The presence or absence of Huong species, or G. vaginalis cannot be used as a test for therapeutic success or failure. Trichomonas: Vaginal DNA Probe Final 05/03/19- 1036 ML Organism 1 Negative Trichomonas CONTINUED ON NEXT PAGE DEPARTMENT OF PATHOLOGY, [address] [place] [address] Magno Tse M.D. Director [facility] # [id number] Patient: LINDA DOMINGUEZ [id number] (Continued) Specimen: [id number] Collected: 05/02/19-1353 Received: 05/02/19-1909 (Continued) Procedure Result Reported Site Trichomonas: Vaginal DNA Probe Final (continued) 05/03/19- 1035 The presence or absence of T. vaginalis cannot be used as a test for therapeutic success or failure. * ML - Main Lab . END OF REPORT DEPARTMENT OF PATHOLOGY, [address] [place] [address] Magno Tse M.D. Director [facility] # [id number] Procedures Description No Information Available Medical Devices Description No Information Available Encounters Type Date Location Provider Dx Diagnosis Office Visit 05/14/2019 [facility] Rachael Truong, N92.0 Excessive and 4:30p [facility] MOLD OPERATOR-Cde frequent menstruation with regular cycle N80.9 Endometriosis, unspecified Office Visit 05/02/2019 1:00p [facility] Rachael Alexi, N92.0 Excessive [facility] MOLD OPERATOR-Cde frequent menstruation with regular cycle N80.9 Endometriosis, unspecified N76.0 Acute vaginitis Office Visit 04/19/2019 10:00a Surgical Caprice Bello, K64.4 [facility] MD hemorrhoidal skin tags Assessments Date Code Description Provider 05/14/2019 N92.0 Excessive and frequent menstruation with Rachael Alexi, MOLD OPERATOR -Cde regular cycle 05/14/2019 N80.9 Endometriosis, unspecified Rachael Alexi, MOLD OPERATOR-Cde 05/02/2019 N92.0 Excessive and frequent menstruation with Rachael Alexi, MOLD OPERATOR -Cde regular cycle 05/02/2019 N80.9 Endometriosis, unspecified Rachael Alexi, MOLD OPERATOR-Cde 05/02/2019 N76.0 Acute vaginitis Rachael Alexi, MOLD OPERATOR-Cde 04/19/2019 K64.4 Residual hemorrhoidal skin tags Caprice Bello MD Plan of Treatment Future Appointment(s):06/25/2019 1:30 pm - Caprice Bello MD at [facility]06/24/2019 7:30 am - Flores Gonzalez MD at [facility]07/09/2019 3:00 pm - [facility] at Jdojjshk76/17/2020 - Rachael Truong, MOLD OPERATOR-CdeN92.0 Excessive and frequent menstruation with regular cycleNew Medication:Nuvaring 0.12-0.015 mg/ 24HR - insert vaginally x 3 week every hsgddF01.9 Endometriosis, unspecifiedFollow up:Mirena IUD with Dr Salas Functional Status Description No Information Available Mental Status Description No Information Available Referrals Description No Information Available
--- OUTSIDE RECORDS SUMMARY | 2019-06-02 08:37 | XMS REPORT | Continuity of Care Document ---
:1985 External Reference #:[id number] Demographics Address [address] [place] [address] Home Phone [phone] Mobile Phone [phone] Email Address Preferred Language en Marital Status Not or Evangelical Affiliation Unknown Race White Ethnic Group Not or Author Name Rachaeljuani Truong, ROTARY BAR OPERATOR-Cde (transmitted by agent of provider Mare Kaplan) Address [address] [facility], [place] [address] Care Team Providers Name Role Phone Elyse Zamora MD - Family Care Team Information Outsole Beveler [phone] Medicine Problems Description No Information Available Social History Type Date Description Comments Sex Unknown ETOH Use Denies alcohol use Tobacco Use Start: Unknown Patient has never smoked Recreational Drug Use Denies Drug Use Smoking Status Reviewed: 05/02/19 Patient has never smoked Exercise Type/Frequency Exercises [...] Available Vital Signs Date Vital Result Comment 05/02/2019 12:50pm Height 60 inches 5'0" Weight 154.00 lb Heart Rate 78 /min BP Systolic 117 mmHg BP Diastolic 84 mmHg O2 % BldC Oximetry 98 % BMI (Body Mass Index) 30.1 kg/m2 Last Menstrual Period [id number] 04/19/2019 10:07am Height 60 inches 5'0" Weight 155.00 lb Heart Rate 68 /min BP Systolic Sitting 118 mmHg BP Diastolic Sitting 70 mmHg Respiratory Rate 16 /min Body Temperature 98.3 F BMI (Body Mass Index) 30.3 kg/m2 Results Test Acquired Date Facility Test Result H/L Range Note Laboratory test 05/02/2019 [facility] Gardnerella/Y <pending> finding [address]: [place] [address] Dna [phone] Procedures Description No Information Available Medical Devices Description No Information Available Encounters Type Date Location Provider Dx Diagnosis Office Visit 04/19/2019 Surgical Caprice Bello MD K64.4 Residual 10:00a [facility] hemorrhoidal skin tags Assessments Date Code Description Provider 05/02/2019 N92.0 Excessive and frequent menstruation with Rachael Truong, ROTARY BAR OPERATOR -Cde regular cycle 05/02/2019 N80.9 Endometriosis, unspecified Rachael Truong, ROTARY BAR OPERATOR-Cde 05/02/2019 N76.0 Acute vaginitis EVA FitzgeraldP-Cde 04/19/2019 K64.4 Residual hemorrhoidal skin tags Caprice Bello MD Plan of Treatment Future Appointment(s):05/27/2019 1:00 pm - Caprice Bello MD at [facility]05/22/2019 10:00 am - Flores Gonzalez MD at [facility]05/02/2019 - EVA FitzgeraldP-CdeN92.0 Excessive and frequent menstruation with regular cycleNew Labs:CBC Auto Diff, Ordered: Ferritin, Ordered: 05/02/19TSH (Thyroid Stim Horm), Ordered: 05/02/19Vitamin B12, Ordered: 05/02/19New Xrays:US Transvaginal, Ordered: 05/02/19Follow up: after kcwdfolvazX57.9 Endometriosis, mwfygqvgfwgT28.0 Acute vaginitis Functional Status Description No Information Available Mental Status Description No Information Available Referrals Description No Information Available
--- OUTSIDE RECORDS SUMMARY | 2019-06-02 08:37 | XMS REPORT | Continuity of Care Document ---
:1985 External Reference #:[id number] Demographics Address [address] [place] [address] Home Phone [phone] Mobile Phone [phone] Email Address Preferred Language en Marital Status Not or Adventist Affiliation Unknown Race White Ethnic Group Not or Author Name Rachael Truong, DIRECTOR MARKET RESEARCH-Cde (transmitted by agent of provider May) Address [address] , [place] [address] Care Team Providers Name Role Phone Elyse Zamora MD - Family Care Team Information Account Leader [phone] Medicine Problems Description No Information Available Social [...] N92.0 Rachael Truong, 05/14/2019 week every month DIRECTOR MARKET RESEARCH-Cde 0.12-0.015mg/24HR Ring Anusol-HC Apply to the 30gm [...] Mass Index) 30.1 kg/m2 Last Menstrual Period [id number] Results Test Acquired Date Facility Test Result H/L Range Note CBC Auto 05/03/2019 [facility] White Blood 6.0 10^3/uL Normal 3.5-10.[address] [place] [address] [phone] Red Blood Count 4.41 10^6/uL Normal 3.70-4.87 [...] Blood Cells % 0.1 Laboratory test 05/03/2019 [facility] Ferritin 70.9 ng/mL Normal 11-[address] [place] [address] [phone] TSH (Thyroid Stim Horm) 1.05 mcIU/mL Normal 0.34-5.60 Vitamin B12 481 pg/mL Normal 180-914 1 Laboratory test 05/02/2019 [facility] Gardnerella/Yeast: SEE RESULT [address] [place] [address] [phone] 1 Normal Range 180 to 914 Indeterminate Range 145 to 180 Deficient Range <145 2 SEE RESULT BELOW Name: LINDA DOMINGUEZ Teo : [address]: Rachael Truong NP [facility] Acct: [id number] Unit: [id number] AGE: 33 Location: [facility] Re05/02/19 SEX: F Status: REG REF SPEC: [id number] WAYNE: 05/02/19-[address]: Rachael LAMAR REQ: [id number] RECD: 05/02/19 STATUS: COMP _ SOURCE: VAGINAL SPDESC: ORDERED: Nikunj,Yeast DNA, Trich DNA COMMENTS: [id number] Would you like to order Trichomonas Vaginalis [...] CONTINUED ON NEXT PAGE DEPARTMENT OF PATHOLOGY, [address] [place] [address] Magno Tse M.D. Director [facility] # [id number] Patient: LINDA DOMINGUEZ [id number] (Continued) Specimen: [id number] Collected: 05/02/19-1353 Received: 05/02/19-1909 (Continued) Procedure Result Reported Site Trichomonas: Vaginal DNA Probe Final (continued) 05/03/19- 1035 The presence or absence of T. vaginalis cannot be used as a test for therapeutic success or failure. * ML - Main Lab . END OF REPORT DEPARTMENT OF PATHOLOGY, [address] [place] [address] Magno Tse M.D. Director [facility] # [id number] Procedures Description No Information Available Medical Devices Description No Information Available Encounters Type Date Location Provider Dx Diagnosis Office Visit 05/02/[address] [facility] Rcahael Truong, N92.0 Excessive and 1:00p [facility] DIRECTOR MARKET RESEARCH-Cde frequent menstruation with regular cycle N80.9 Endometriosis, unspecified N76.0 Acute vaginitis Office Visit 04/19/2019 10:00a Surgical Caprice Bello, K64.4 Residual [facility] hemorrhoidal skin tags Assessments Date Code Description Provider 05/14/2019 N92.0 Excessive and frequent menstruation with Rachael Alexi, DIRECTOR MARKET RESEARCH -Cde regular cycle 05/14/2019 N80.9 Endometriosis, unspecified Rachael Alexi, DIRECTOR MARKET RESEARCH-Cde 05/02/2019 N92.0 Excessive and frequent menstruation with Rachael Alexi, DIRECTOR MARKET RESEARCH -Cde regular cycle 05/02/2019 N80.9 Endometriosis, unspecified Rachael Alexi, DIRECTOR MARKET RESEARCH-Cde 05/02/2019 N76.0 Acute vaginitis Rachael Alexi, DIRECTOR MARKET RESEARCH-Cde 04/19/2019 K64.4 Residual hemorrhoidal skin tags Caprice Bello MD Plan of Treatment Future Appointment(s):07/09/2019 3:00 pm - Alan Salas MD at [facility] at [place]/30/2020 1:00 pm - Caprice Bello MD at [facility]05/22/2019 10:00 am - Flores Gonzalez MD at [facility]05/14/2019 - Rachael Truong, DIRECTOR MARKET RESEARCH-CdeN92.0 Excessive and frequent menstruation with regular cycleNew Medication:Nuvaring 0.12-0.015 mg/ 24HR - insert vaginally x 3 week every aqazpS17.9 Endometriosis, unspecifiedFollow up:Mirena IUD with Dr Salas Functional Status Description No Information Available Mental Status Description No Information Available Referrals Description No Information Available
--- NOTE | 2019-06-02 08:47 | UC ---
UC General HPI - HPI Summary HPI Summary: Patient is a 33 year old female , who present today to the urgent care with nausea and voimiting along with diarrhea that started on 05/28/19. She reports that she has had this intermittent diarrhea and constipation and was diagnosed with IBS in 2013. Not taking any specific medication for that. Had seen gastroenterology at that time. Since her symptoms got worse last week, she had an appointment with GI but the appointment was rescheduled. She is currently taking Pepto-Bismol as needed. Denies any fever or chills. Had one episode of vomiting on the day of onset. She denies any recent travel or any exposure to covid. She is out of work and wants to return to work and needs a work note. Describes vomiting as nonbilious and nonbloody. Diarrhea is liquidy without any blood or mucus in stool. No abdominal Pain. She continues to have nausea and diarrhea at this time. Able to tolerate by mouth . Denies any fever, chills, cough chest pain or shortness of breath . - History of Current Complaint Stated Complaint: NAUSEA DIARRHEA RTW NOTE Time Seen by Provider: 06/02/19 08:37 Hx Obtained From: Patient Hx Last Menstrual Period: 04/11/19 - Allergy/Home Medications Allergies/Adverse Reactions: Allergies Allergy/AdvReac Type Severity Reaction Status Date / Time No Known Allergies Allergy Verified 06/02/19 09:03 Home Medications: Home Medications Albuterol HFA INHALER* [Ventolin HFA Inhaler*] 2 puff INH Q6H PRN 04/23/19 [ History Confirmed 06/02/19] Antidepressant 10 mg PO DAILY 04/23/19 [History Confirmed 06/02/19] Bismuth Subsalicylate [Pepto-Bismol] 1 dose PO Q6H PRN 06/02/19 [History Confirmed 06/02/19] Etonogest/Eth.estradiol (Nf) [Nuvaring Vaginal Ring] 1 unit VAGINAL SEE INSTRUCTIONS 06/02/19 [History Confirmed 06/02/19] Ondansetron ODT TAB* [Zofran 4 MG Odt TAB*] 4 mg PO Q8H PRN 7 Days #21 tab.odt 06/02/19 [Rx] PMH/Surg Hx/FS Hx/Imm Hx - Additional Past Medical History Additional PMH: Past Medical History : Depression, irritable bowel syndrome Past Surgical History: [id number], kidney stone removal, endometriosis surgery, tonsillectomy Family History : Diabetes Social History : no alcohol, non smoker, no drug use. She works at a factory. Previously Healthy: Yes Other History Of: Negative For: Hepatitis B, Hepatitis C, Anticoagulant Therapy - Surgical History Surgical History: Yes Surgery Procedure, Year, and Place: , exploratory lap, t&a. kidney stone removed x 3 procedures: mesh placed; stone removed, mesh removed - last procedure 04/2018 - Family History Known Family History: Positive: Diabetes Negative: Respiratory Disease, Seizure Disorder - Social History Alcohol Use: None Substance Use Type: None Smoking Status (MU): Never Smoked Tobacco Review of Systems All Other Systems Reviewed And Are Negative: Yes Constitutional: Positive: Negative Skin: Positive: Negative Eyes: Positive: Negative ENT: Positive: Negative Respiratory: Positive: Negative Cardiovascular: Positive: Negative Gastrointestinal: Positive: Vomiting, Diarrhea, Nausea. Negative: Abdominal Pain Genitourinary: Positive: Negative Motor: Positive: Negative Neurovascular: Positive: Negative Musculoskeletal: Positive: Negative Neurological/Mental Status: Positive: Negative Psychological: Positive: Negative Is Patient Immunocompromised?: No Physical Exam - Summary Physical Exam Summary: Full PPE donned prior to examination- mask, face shield, gown and gloves. Physical Exam: Const: Appears well. No signs of apparent distress present. Alert and oriented x 3. Musculo: Walks with a normal gait. Head/Face: Atraumatic, normocephalic on inspection. Eyes: EOMI and PERRLA in both eyes. Conjunctivae clear. No discharge noted ENT: Hearing normal Respiratory: Respirations are unlabored. Lungs clear to auscultation bilaterally, no wheezing , rhonchi or rales noted . CVS: Regular rate and Rhythm, S1S2 normal , no murmurs identified. Extremities: Peripheral circulation is grossly normal. Pulses 2+ Abdomen : Soft non tender , nondistended , Bowel sounds present . No guarding , rebound tenderness or rigidity noted. Skin: No lesions or rash located on the upper extremities or on the lower extremities. Neuro: Cranial nerves II to XII intact, motor and sensory intact. DTR Intact bilaterally. Mood is normal. Affect is normal. Triage Information Reviewed: Yes Course/Dx - Course Course Of Treatment: During the visit today, we discussed the findings, she does not have upper respiratory symptoms but does have nausea vomiting and diarrhea which has been reported as COVID symptoms. Suspect flare of IBS but Possibility of COVID javonaot be completely rued out. Since she needs a note to return to work, we discussed that it's reasonable to test her for COVID and she agrees . I will prescribe zofran to the pharmacy for her nausea. Advised her to maintain hydration and follow up with her GI doctor. Return to urgent care/ ER if symptoms get worse. Patient expressed understanding . - Diagnoses Provider Diagnosis: Nausea & vomiting, Diarrhea, IBS (irritable bowel syndrome) Discharge ED - Sign-Out/Discharge Documenting (check all that apply): Patient Departure All imaging exams completed and their final reports reviewed: No Studies - Discharge Plan Condition: Stable Disposition: HOME Prescriptions: Ondansetron ODT TAB* [Zofran 4 MG Odt TAB*] 4 mg PO Q8H PRN 7 Days #21 tab.odt PRN Reason: Nausea Patient Education Materials: Acute Nausea and Vomiting (ED) Forms: COVID-19 Tested & Isolation Referrals: Elyse Zamora MD [Primary Care Provider] - Additional Instructions: Take the medication as needed. Given your symptoms, this could also be Covid 19 virus and therefore Covid 19 test was obtained. Please follow up with [facility] if your symptoms worsen and you start to have difficulty breathing please call the emergency room to alert them that he will be arriving for evaluation. - Billing Disposition and Condition Condition: STABLE Disposition: Home
[2019-06-02 09:47] VITALS: BP 122/78
== END 2019-06-02 09:55 | disposition home or self-care (01) ==
LOC: UCCORT 08:30
DX: R11.2 Nausea with vomiting, unspecified (principal); R19.7 Diarrhea, unspecified; Z20.828 Contact with and (suspected) exposure to other viral communicable diseases; K58.0 Irritable bowel syndrome with diarrhea; F32.9 Major depressive disorder, single episode, unspecified; Z79.899 Other long term (current) drug therapy
CPT/HCPCS: 87635; 99212; G0463